=== PATIENT | female | born 1940 | race Caucasian/White ===

== ENCOUNTER → 2019-07-18 | Outpatient (CLI) | payer MEDICARE ==
[~2019-07-18] MED LIST: ANACIN 400-321 EACH PO; Furosemide20 MG PO; GABA100 PO; IBUP800 PO; LOSARTAN-HCTZ1 EAC2 PO; PRED5 PO; TRAM50 PO; TYLECOD3
== END ==
LOC: LAB SHORT 18:35 → LAB 18:35
DX: N39.0 Urinary tract infection, site not specified (principal)
CPT/HCPCS: 87086

== ENCOUNTER → 2021-11-26 | Outpatient (CLI) | payer MEDICARE | END | disposition home or self-care (01) | LOC: LAB 18:44 → LAB SHORT 18:44 | DX: R30.0 Dysuria (principal) | CPT/HCPCS: 87077; 87086; 87186 ==

== ENCOUNTER → 2024-07-31 | Outpatient (CLI) | payer MEDICARE | LOC: LAB SHORT 09:10 → LAB 09:10 | DX: R30.0 Dysuria (principal) | CPT/HCPCS: 87077; 87086; 87186 ==

== ENCOUNTER 2025-05-07 02:48 | Day surgery (SDC) | payer MEDICARE ==
[2025-05-07] MEDS ORDERED: Lidocaine HCl 4% Cream 5 GM ONE (08:28)
== END 2025-05-07 23:00 | disposition home or self-care (01) ==
LOC: WOUND 02:48
DX: E11.622 Type 2 diabetes mellitus with other skin ulcer (principal); L97.812 Non-pressure chronic ulcer of other part of right lower leg with fat layer exposed; L97.822 Non-pressure chronic ulcer of other part of left lower leg with fat layer exposed; E11.51 Type 2 diabetes mellitus with diabetic peripheral angiopathy without gangrene; I87.2 Venous insufficiency (chronic) (peripheral); I10 Essential (primary) hypertension; Z88.8 Allergy status to other drugs, medicaments and biological substances
CPT/HCPCS: A6213; A9270; G0463

== ENCOUNTER 2025-05-15 02:35 | Day surgery (SDC) | payer MEDICARE ==
[2025-05-15] MEDS ORDERED: Lidocaine HCl 4% Cream 5 GM ONE (09:56)
== END 2025-05-15 23:00 | disposition home or self-care (01) ==
LOC: WOUND 02:35
DX: E11.622 Type 2 diabetes mellitus with other skin ulcer (principal); L97.812 Non-pressure chronic ulcer of other part of right lower leg with fat layer exposed; L97.822 Non-pressure chronic ulcer of other part of left lower leg with fat layer exposed; I87.2 Venous insufficiency (chronic) (peripheral); E11.51 Type 2 diabetes mellitus with diabetic peripheral angiopathy without gangrene
CPT/HCPCS: A6213; A9270

== ENCOUNTER 2025-05-21 01:39 | Day surgery (SDC) | payer MEDICARE ==
[2025-05-21] MEDS ORDERED: Lidocaine HCl 4% Cream 5 GM ONE (08:44)
== END 2025-05-21 23:00 | disposition home or self-care (01) ==
LOC: WOUND 01:39
DX: E11.622 Type 2 diabetes mellitus with other skin ulcer (principal); L97.812 Non-pressure chronic ulcer of other part of right lower leg with fat layer exposed; L97.822 Non-pressure chronic ulcer of other part of left lower leg with fat layer exposed; I87.2 Venous insufficiency (chronic) (peripheral); E11.51 Type 2 diabetes mellitus with diabetic peripheral angiopathy without gangrene
CPT/HCPCS: A6213; A9270

== ENCOUNTER 2025-05-28 00:07 | Day surgery (SDC) | payer MEDICARE ==
[2025-05-28] MEDS ORDERED: Lidocaine HCl 4% Cream 5 GM ONE (08:13)
== END 2025-05-28 23:00 | disposition home or self-care (01) ==
LOC: WOUND 00:07
DX: E11.622 Type 2 diabetes mellitus with other skin ulcer (principal); L97.813 Non-pressure chronic ulcer of other part of right lower leg with necrosis of muscle; L97.822 Non-pressure chronic ulcer of other part of left lower leg with fat layer exposed; E11.51 Type 2 diabetes mellitus with diabetic peripheral angiopathy without gangrene; I87.2 Venous insufficiency (chronic) (peripheral); I10 Essential (primary) hypertension
CPT/HCPCS: A6213; A9270

== ENCOUNTER 2025-06-11 00:59 | Day surgery (SDC) | payer MEDICARE ==
[2025-06-11] MEDS ORDERED: Lidocaine HCl 4% Cream 5 GM ONE (07:49)
== END 2025-06-11 23:00 | disposition home or self-care (01) ==
LOC: WOUND 00:59
DX: E11.622 Type 2 diabetes mellitus with other skin ulcer (principal); L97.812 Non-pressure chronic ulcer of other part of right lower leg with fat layer exposed; I87.2 Venous insufficiency (chronic) (peripheral); E11.51 Type 2 diabetes mellitus with diabetic peripheral angiopathy without gangrene
CPT/HCPCS: A6213; A9270

== ENCOUNTER 2025-06-18 00:10 | Day surgery (SDC) | payer MEDICARE ==
[2025-06-18] MEDS ORDERED: Lidocaine HCl 4% Cream 5 GM ONE (07:45)
== END 2025-06-18 23:37 | disposition home or self-care (01) ==
LOC: WOUND 00:10
DX: E11.622 Type 2 diabetes mellitus with other skin ulcer (principal); L97.812 Non-pressure chronic ulcer of other part of right lower leg with fat layer exposed; E11.51 Type 2 diabetes mellitus with diabetic peripheral angiopathy without gangrene; I87.2 Venous insufficiency (chronic) (peripheral); I10 Essential (primary) hypertension; M06.9 Rheumatoid arthritis, unspecified; M19.90 Unspecified osteoarthritis, unspecified site; J45.909 Unspecified asthma, uncomplicated; Z79.52 Long term (current) use of systemic steroids; Z79.82 Long term (current) use of aspirin; Z79.899 Other long term (current) drug therapy
CPT/HCPCS: A6213; A9270

== ENCOUNTER 2025-06-25 00:11 | Day surgery (SDC) | payer MEDICARE ==
[2025-06-25] MEDS ORDERED: Lidocaine HCl 4% Cream 5 GM ONE (07:56)
== END 2025-06-25 23:00 | disposition home or self-care (01) ==
LOC: WOUND 00:11
DX: E11.622 Type 2 diabetes mellitus with other skin ulcer (principal); L97.815 Non-pressure chronic ulcer of other part of right lower leg with muscle involvement without evidence of necrosis; E11.51 Type 2 diabetes mellitus with diabetic peripheral angiopathy without gangrene; I87.2 Venous insufficiency (chronic) (peripheral); I10 Essential (primary) hypertension
CPT/HCPCS: A6213; A9270

== ENCOUNTER 2025-07-16 07:35 | Day surgery (SDC) | payer MEDICARE ==
[2025-07-16] MEDS ORDERED: Lidocaine HCl 4% Cream 5 GM ONE (07:44)
== END 2025-07-16 23:00 | disposition home or self-care (01) ==
LOC: WOUND 07:35
DX: E11.622 Type 2 diabetes mellitus with other skin ulcer (principal); L97.812 Non-pressure chronic ulcer of other part of right lower leg with fat layer exposed; I87.2 Venous insufficiency (chronic) (peripheral); E11.51 Type 2 diabetes mellitus with diabetic peripheral angiopathy without gangrene; I10 Essential (primary) hypertension; J45.909 Unspecified asthma, uncomplicated; M06.9 Rheumatoid arthritis, unspecified; M19.90 Unspecified osteoarthritis, unspecified site; Z79.52 Long term (current) use of systemic steroids; Z79.82 Long term (current) use of aspirin; Z79.899 Other long term (current) drug therapy; Z87.828 Personal history of other (healed) physical injury and trauma
CPT/HCPCS: A9270